=== PATIENT | female | born 1970 | race Two or more races ===

== ENCOUNTER 2017-10-23 15:23 | Emergency (ER) | payer OTHER ==
[~2017-10-23] VITALS: Ht 160 cm; Wt 79.8 kg
[~2017-10-23 15:23] MED LIST: CLEOCIN HCL300 MG PO; GILTUSS TR; IBUPROPHEN
[2017-10-23] MEDS ORDERED: COZAAR100 MG (15:31)
[2017-10-23] MEDS ORDERED: NORVASC2.5 M1 (15:32)
[2017-10-23] MEDS ORDERED: PRAVACHOL80 MG (15:32)
== END 2017-10-23 23:27 | disposition home or self-care (01) ==
LOC: ER 15:23
DX: K52.9 Noninfective gastroenteritis and colitis, unspecified (principal)